=== PATIENT | female | born 1960 | race Two or more races ===

== ENCOUNTER 2017-03-22 15:22 | Inpatient (IN) | payer MEDICAID ==
[~2017-03-22] VITALS: Ht 152.4 cm; Wt 54.4 kg
[2017-03-22] MEDS ORDERED: Vancomycin 1 GM in NS 275 ML IVPB ONE (16:00)
[2017-03-22] MEDS ORDERED: Ketorolac 30mg Inj IV ONE (16:00)
--- NOTE | 2017-03-22 16:30 | Diagnostic Imaging Report ---
Indication: Reason For Exam: PAIN Technique: 3 views of the left knee Comparison: None Findings: No acute fractures. No dislocations. Joint spaces are preserved Impression: Negative
[2017-03-22] MEDS ORDERED: Vancomycin 1gm inj IVPB ONE (17:02)
[2017-03-22] MEDS ORDERED: NS 275 ML ONE (17:03)
[2017-03-22] MEDS ORDERED: ZOCOR20 M1 ORAL (17:45)
[2017-03-22] MEDS ORDERED: METFORMIN HCL500 M1 ORAL (17:45)
--- NOTE | 2017-03-22 18:25 | Emergency Room Report ---
History of Present Illness General Chief Complaint: Skin Rash/Abscess Source: Patient Present Illness HPI Patient presents emergency department today complaining of right lower extremity redness and tenderness. Patient denies any fever chest pain shortness of breath. States that this started out as a little bump in her right pinky toe and then gradually became red and more painful and then straight up her leg and into her thigh and part of her abdomen. Patient saw her primary care physician and was told that she needed to be admitted to the hospital and was sent here for further evaluation. Patient does have a history of diabetes. No other complaints are noted patient was noted to be severe.No other modifying factors. No other associated signs and symptoms. No other complaints were noted. Allergies: Coded Allergies: No Known Allergies (Unverified , 03/22/17) Patient History Past Medical History: DM, HTN Past Surgical History: none Pertinent Family History: none Social History: Denies: smoking, alcohol use, drug use Reviewed Nursing Documentation: PMH: Agreed, PSxH: Agreed Nursing Documentation-PMH Past Medical History: No History, Except For Hx Hypertension: Yes Hx Diabetes: Yes Review of Systems All Other Systems: negative except mentioned in HPI Physical Exam Vital Signs Date Time Temp Pulse Resp B/P (MAP) Pulse Ox O2 Delivery O2 Flow Rate FiO2 03/22/17 15:37 99.1 100 20 145/77 99 Room Air Sp02 EP Interpretation: reviewed, normal General Appearance: normal inspection, well appearing, no apparent distress, alert Head: atraumatic Eyes: bilateral eye normal inspection ENT: normal ENT inspection, hearing grossly normal, normal voice Neck: normal inspection, full range of motion, supple, no bony tend Respiratory: normal inspection, lungs clear, normal breath sounds, no respiratory distress, no retraction, no wheezing Cardiovascular #1: regular rate, rhythm, no edema Gastrointestinal: normal inspection, normal bowel sounds, non tender, soft, no guarding, no hernia Genitourinary: no CVA tenderness Musculoskeletal: back normal, normal range of motion, swelling - and redness right lower extremity Neurologic: normal inspection, alert, responsive, speech normal Psychiatric: normal inspection, judgement/insight normal, mood/affect normal Skin: other - right lower extremity redness consistent with cellulitis streaking up the thigh and into the abdominal wall Medical Decision Making Diagnostic Impression: Primary Impression: Cellulitis ER Course Patient presents emergency department today with right lower extremity redness and swelling. Differential considerations include abscess, cellulitis, DVT, allergic reaction. Patient exam consistent with cellulitis. Because of severity of involvement and patient's risk factors I felt the patient require admission. Patient was started on IV antibiotics. Case was discussed with admitting physician. Patient will be admitted to [facility] for further treatment. Labs Test 03/22/17 19:00 White Blood Count 7.1 K/UL (4.8-10.8) Red Blood Count 4.69 M/UL (4.20-5.40) Hemoglobin 13.1 G/DL (12.0-16.0) Hematocrit 42.2 % (37.0-47.0) Mean Corpuscular Volume 90 FL (80-99) Mean Corpuscular Hemoglobin 27.8 PG (27.0-31.0) Mean Corpuscular Hemoglobin Concent 30.9 G/DL (32.0-36.0) Red Cell Distribution Width 12.4 % (11.6-14.8) Platelet Count 257 K/UL (150-450) Mean Platelet Volume 5.5 FL (6.5-10.1) Neutrophils (%) (Auto) 67.5 % (45.0-75.0) Lymphocytes (%) (Auto) 19.7 % (20.0-45.0) Monocytes (%) (Auto) 7.4 % (1.0-10.0) Eosinophils (%) (Auto) 5.1 % (0.0-3.0) Basophils (%) (Auto) 0.3 % (0.0-2.0) Prothrombin Time 9.9 SEC (9.30-11.50) Prothromb Time International Ratio 0.9 (0.9-1.1) Activated Partial Thromboplast Time 28 SEC (23-33) Sodium Level 140 MMOL/L (136-145) Potassium Level 4.0 MMOL/L (3.5-5.1) Chloride Level 106 MMOL/L (98-107) Carbon Dioxide Level 25 MMOL/L (21-32) Anion Gap 9 mmol/L (5-15) Blood Urea Nitrogen 14 mg/dL (7-18) Creatinine 1.0 MG/DL (0.55-1.30) Estimat Glomerular Filtration Rate 57.4 mL/min (>60) Glucose Level 118 MG/DL (74-106) Calcium Level 8.4 MG/DL (8.5-10.1) Total Bilirubin 0.2 MG/DL (0.2-1.0) Aspartate Amino Transf (AST/SGOT) 45 U/L (15-37) Alanine Aminotransferase (ALT/SGPT) 61 U/L (12-78) Alkaline Phosphatase 98 U/L (46-116) Total Protein 7.8 G/DL (6.4-8.2) Albumin 3.8 G/DL (3.4-5.0) Globulin 4.0 g/dL Albumin/Globulin Ratio 0.9 (1.0-2.7) Last Vital Signs Date Time Temp Pulse Resp B/P (MAP) Pulse Ox O2 Delivery O2 Flow Rate FiO2 03/22/17 15:37 99.1 100 20 145/77 99 Room Air Status: improved Disposition: ADMITTED INPATIENT Condition: Serious Referrals: JONO TURCIOS,REFERRING (PCP) EDITH WU M.D. Mar 22, 2017 18:25
[2017-03-22 19:18] LABS: BASOPHILS % (AUTO) 0.3 % (0.0-2.0); EOSINOPHILS % (AUTO) 5.1 % (0.0-3.0); HEMATOCRIT 42.2 % (37.0-47.0); HEMOGLOBIN 13.1 G/DL (12.0-16.0); LYMPHOCYTES % (AUTO) 19.7 % (20.0-45.0); MEAN CORPUSCULAR VOLUME 90 FL (80-99); MONOCYTES % (AUTO) 7.4 % (1.0-10.0); NEUTROPHILS % (AUTO) 67.5 % (45.0-75.0); PLATELET COUNT 257 K/UL (150-450); RED BLOOD COUNT 4.69 M/UL (4.20-5.40); RED CELL DISTRIBUTION WIDTH 12.4 % (11.6-14.8); WHITE BLOOD COUNT 7.1 K/UL (4.8-10.8)
[2017-03-22 19:21] LABS: INR 0.9 (0.9-1.1)
[2017-03-22 19:23] LABS: ANION GAP 9 mmol/L (5-15); BLOOD UREA NITROGEN 14 mg/dL (7-18); CALCIUM 8.4 MG/DL (8.5-10.1); CARBON DIOXIDE 25 MMOL/L (21-32); CHLORIDE 106 MMOL/L (98-107); SODIUM 140 MMOL/L (136-145)
[2017-03-22 19:27] LABS: ALANINE AMINOTRANSFERASE 61 U/L (12-78); ALBUMIN 3.8 G/DL (3.4-5.0); ALBUMIN/GLOBULIN RATIO 0.9 (1.0-2.7); ALKALINE PHOSPHATASE 98 U/L (46-116); ASPARTATE AMINO TRANSFERASE 45 U/L (15-37); BILIRUBIN,TOTAL 0.2 MG/DL (0.2-1.0)
[2017-03-22 19:33] VITALS: BP 100/56
[2017-03-22] MEDS ORDERED: Morphine Sulfate 2mg/ml Inj IVP PRN (20:45)
[2017-03-22] MEDS ORDERED: Zolpidem 5mg tab ORAL PRN (20:45)
[2017-03-22] MEDS ORDERED: ceFAZolin 1gm/50ml Premix 50 ML IV ONE (21:00)
[2017-03-22] MEDS: Heparin 5000 units/ml inj SUBQ SCH (21:56)
[2017-03-22] MEDS: HYDROcodone/Acetamin 10/325 tab ORAL PRN (22:35)
[2017-03-23] VITALS: BP 100/58
[2017-03-23 04:30] VITALS: BP 117/60
[2017-03-23] MEDS: NovoLOG Insulin Flexpen SUBQ SCH ×4 (05:59→20:40)
[2017-03-23 08:00] VITALS: BP 109/63
[2017-03-23 08:13] LABS: BASOPHILS % (AUTO) 0.7 % (0.0-2.0); EOSINOPHILS % (AUTO) 4.5 % (0.0-3.0); HEMATOCRIT 37.5 % (37.0-47.0); HEMOGLOBIN 12.5 G/DL (12.0-16.0); LYMPHOCYTES % (AUTO) 20.7 % (20.0-45.0); MEAN CORPUSCULAR VOLUME 88 FL (80-99); MONOCYTES % (AUTO) 6.2 % (1.0-10.0); NEUTROPHILS % (AUTO) 67.9 % (45.0-75.0); PLATELET COUNT 228 K/UL (150-450); RED BLOOD COUNT 4.27 M/UL (4.20-5.40); RED CELL DISTRIBUTION WIDTH 12.5 % (11.6-14.8); WHITE BLOOD COUNT 5.9 K/UL (4.8-10.8)
[2017-03-23 08:15] LABS: ANION GAP 10 mmol/L (5-15); BLOOD UREA NITROGEN 15 mg/dL (7-18); CALCIUM 7.9 MG/DL (8.5-10.1); CARBON DIOXIDE 23 MMOL/L (21-32); CHLORIDE 106 MMOL/L (98-107); CREATININE 0.8 MG/DL (0.55-1.30); POTASSIUM 3.3 MMOL/L (3.5-5.1); SODIUM 139 MMOL/L (136-145)
[2017-03-23] MEDS: Heparin 5000 units/ml inj SUBQ SCH ×2 (09:04→21:01)
[2017-03-23] MEDS: metFORMIN 500mg tab ORAL SCH (09:04)
--- NOTE | 2017-03-23 11:37 | Infectious Diseases Prog Note ---
Assessment/Plan Problems: (1) Cellulitis of right thigh Assessment & Plan: will start vancomycin and cefazolin empiric coverage, order blood culture to rule out sepsis (2) Cellulitis and abscess of lower extremity Assessment & Plan: management the same as above (3) Sepsis Assessment & Plan: due to the above , will start vancomycin and cefazolin empiric coverage, pending culture (4) Fever Assessment & Plan: due to the above , continue tylenol prn Subjective Allergies: Coded Allergies: No Known Allergies (Unverified , 03/22/17) Objective Vital Signs Last 24 Hour Vital Signs Date Time Temp Pulse Resp B/P (MAP) Pulse Ox O2 Delivery O2 Flow Rate FiO2 03/23/17 08:00 98.6 94 20 109/63 94 03/23/17 05:29 99.9 03/23/17 04:30 101.9 97 19 117/60 96 Room Air 03/23/17 00:00 99.0 88 19 100/58 93 Room Air 03/22/17 19:57 98.8 100 16 100/56 100 Room Air 03/22/17 19:33 98.8 100 16 100/56 100 Room Air 03/22/17 15:37 99.1 100 20 145/77 99 Room Air Height (Feet): 5 Height (Inches): 0.00 Weight (Pounds): 120 Laboratory Tests Test 03/22/17 19:00 03/23/17 07:00 White Blood Count 7.1 K/UL (4.8-10.8) 5.9 K/UL (4.8-10.8) Red Blood Count 4.69 M/UL (4.20-5.40) 4.27 M/UL (4.20-5.40) Hemoglobin 13.1 G/DL (12.0-16.0) 12.5 G/DL (12.0-16.0) Hematocrit 42.2 % (37.0-47.0) 37.5 % (37.0-47.0) Mean Corpuscular Volume 90 FL (80-99) 88 FL (80-99) Mean Corpuscular Hemoglobin 27.8 PG (27.0-31.0) 29.2 PG (27.0-31.0) Mean Corpuscular Hemoglobin Concent 30.9 G/DL (32.0-36.0) L 33.3 G/DL (32.0-36.0) Red Cell Distribution Width 12.4 % (11.6-14.8) 12.5 % (11.6-14.8) Platelet Count 257 K/UL (150-450) 228 K/UL (150-450) Mean Platelet Volume 5.5 FL (6.5-10.1) L 6.3 FL (6.5-10.1) L Neutrophils (%) (Auto) 67.5 % (45.0-75.0) 67.9 % (45.0-75.0) Lymphocytes (%) (Auto) 19.7 % (20.0-45.0) L 20.7 % (20.0-45.0) Monocytes (%) (Auto) 7.4 % (1.0-10.0) 6.2 % (1.0-10.0) Eosinophils (%) (Auto) 5.1 % (0.0-3.0) H 4.5 % (0.0-3.0) H Basophils (%) (Auto) 0.3 % (0.0-2.0) 0.7 % (0.0-2.0) Prothrombin Time 9.9 SEC (9.30-11.50) Prothromb Time International Ratio 0.9 (0.9-1.1) Activated Partial Thromboplast Time 28 SEC (23-33) Sodium Level 140 MMOL/L (136-145) 139 MMOL/L (136-145) Potassium Level 4.0 MMOL/L (3.5-5.1) 3.3 MMOL/L (3.5-5.1) L Chloride Level 106 MMOL/L (98-107) 106 MMOL/L (98-107) Carbon Dioxide Level 25 MMOL/L (21-32) 23 MMOL/L (21-32) Anion Gap 9 mmol/L (5-15) 10 mmol/L (5-15) Blood Urea Nitrogen 14 mg/dL (7-18) 15 mg/dL (7-18) Creatinine 1.0 MG/DL (0.55-1.30) 0.8 MG/DL (0.55-1.30) Estimat Glomerular Filtration Rate 57.4 mL/min (>60) > 60 mL/min (>60) Glucose Level 118 MG/DL (74-106) H 112 MG/DL (74-106) H Calcium Level 8.4 MG/DL (8.5-10.1) L 7.9 MG/DL (8.5-10.1) L Total Bilirubin 0.2 MG/DL (0.2-1.0) Aspartate Amino Transf (AST/SGOT) 45 U/L (15-37) H Alanine Aminotransferase (ALT/SGPT) 61 U/L (12-78) Alkaline Phosphatase 98 U/L (46-116) Total Protein 7.8 G/DL (6.4-8.2) Albumin 3.8 G/DL (3.4-5.0) Globulin 4.0 g/dL Albumin/Globulin Ratio 0.9 (1.0-2.7) L Current Medications Medications (Trade) Dose Ordered Sig/Rebekah Route PRN Reason Start Time Stop Time Status Last Admin Dose Admin Acetaminophen (Tylenol) 650 mg Q4H PRN ORAL Mild Pain (Pain Scale 1-3) 03/22/17 20:45 04/21/17 20:44 03/23/17 04:30 Acetaminophen/ Hydrocodone Bitart ([place] 10/325) 1 ea Q4H PRN ORAL For Moderate Pain 03/22/17 20:45 03/29/17 20:44 03/22/17 22:35 Atorvastatin Calcium (Lipitor) 10 mg BEDTIME ORAL 03/22/17 22:30 04/21/17 22:29 03/22/17 21:55 Dextrose (Dextrose 50%) STAT PRN IV Hypoglycemia 03/22/17 20:45 04/21/17 20:44 Diphenhydramine HCl (Benadryl) 25 mg Q6H PRN ORAL Itching/Pruritis 03/22/17 20:45 04/21/17 20:44 03/22/17 22:35 Heparin Sodium (Porcine) (Heparin 5000 units/ml) 5,000 units EVERY 12 HOURS SUBQ 03/22/17 22:30 04/21/17 22:29 03/23/17 09:04 Insulin Aspart (NovoLOG) BEFORE MEALS AND HS SUBQ 03/23/17 06:30 04/22/17 06:29 Metformin HCl (Glucophage) 500 mg DAILY ORAL 03/23/17 09:00 2/5/18 08:59 03/23/17 09:04 Morphine Sulfate (Morphine Sulfate) 2 mg Q4H PRN IVP Severe Pain (Pain Scale 7-10) 03/22/17 20:45 03/29/17 20:44 Ondansetron HCl (Zofran) 4 mg Q6H PRN IVP Nausea & Vomiting 03/22/17 20:45 04/21/17 20:44 Vancomycin HCl (Vanco rx to dose) 1 ea DAILY PRN MISC Per rx protocol 03/22/17 19:45 04/21/17 19:44 Vancomycin HCl 1 gm/Dextrose 275 ml @ 183.708 mls/hr Q24H IVPB 03/23/17 17:00 03/28/17 16:59 Zolpidem Tartrate (Ambien) 5 mg HSPRN PRN ORAL Insomnia 03/22/17 20:45 03/29/17 20:44 Suzan Gomez M.D. Mar 23, 2017 11:37
[2017-03-23 12:00] VITALS: BP 117/71
--- NOTE | 2017-03-23 12:30 | History and Physical ---
History of Present Illness General Date patient seen: Mar 23, 2017 Reason for Hospitalization: Skin Rash/Abscess Present Illness HPI 57 y/o female with a PMH for DM and hyperlipidemia who presented to the ED c/o rash on the right leg. She was seen by her PCP yesterday who sent her immediately to the ED for further evaluation. She states that the rash started on the dorsum of right foot then over the last week extended up to the medial thigh. She reports fever but denies any other localizing complaints. Since admission, patient states that the rash is improving and edema is improved. Daughters at bedside agree. However, patient is still spiking temp. Allergies: Coded Allergies: No Known Allergies (Unverified , 03/22/17) Medication History Scheduled Metformin Hcl* (Metformin Hcl*), 500 MG ORAL DAILY, (Reported) Simvastatin (Zocor), 20 MG ORAL BEDTIME, (Reported) Patient History History Provided By: Patient, Family Member Healthcare decision maker n/a Resuscitation status Full Code Advanced Directive on File Past Medical/Surgical History Past Medical/Surgical History: (1) Hyperlipidemia (2) DM (diabetes mellitus) Review of Systems All Other Systems: negative except mentioned in HPI Physical Exam General Appearance: WD/WN, no apparent distress HEENT: normocephalic, atraumatic Respiratory/Chest: lungs clear Cardiovascular/Chest: tachycardia Abdomen: non tender, soft Extremities: trace edema Skin Exam: rash Neurologic: alert, oriented x 3 Physical Exam Narrative RLE - with erythematous lesions, tender, and warm to touch. Last 24 Hour Vital Signs Date Time Temp Pulse Resp B/P (MAP) Pulse Ox O2 Delivery O2 Flow Rate FiO2 03/23/17 12:00 99.9 106 20 117/71 96 03/23/17 08:00 98.6 94 20 109/63 94 03/23/17 05:29 99.9 03/23/17 04:30 101.9 97 19 117/60 96 Room Air 03/23/17 00:00 99.0 88 19 100/58 93 Room Air 03/22/17 19:57 98.8 100 16 100/56 100 Room Air 03/22/17 19:33 98.8 100 16 100/56 100 Room Air 03/22/17 15:37 99.1 100 20 145/77 99 Room Air Intake and Output 03/22/17 03/23/17 19:00 07:00 Intake Total 50 ml Balance 50 ml Intake Oral 0 ml IV Total 50 ml # Voids 2 Laboratory Tests Test 03/22/17 19:00 03/23/17 07:00 White Blood Count 7.1 K/UL (4.8-10.8) 5.9 K/UL (4.8-10.8) Red Blood Count 4.69 M/UL (4.20-5.40) 4.27 M/UL (4.20-5.40) Hemoglobin 13.1 G/DL (12.0-16.0) 12.5 G/DL (12.0-16.0) Hematocrit 42.2 % (37.0-47.0) 37.5 % (37.0-47.0) Mean Corpuscular Volume 90 FL (80-99) 88 FL (80-99) Mean Corpuscular Hemoglobin 27.8 PG (27.0-31.0) 29.2 PG (27.0-31.0) Mean Corpuscular Hemoglobin Concent 30.9 G/DL (32.0-36.0) L 33.3 G/DL (32.0-36.0) Red Cell Distribution Width 12.4 % (11.6-14.8) 12.5 % (11.6-14.8) Platelet Count 257 K/UL (150-450) 228 K/UL (150-450) Mean Platelet Volume 5.5 FL (6.5-10.1) L 6.3 FL (6.5-10.1) L Neutrophils (%) (Auto) 67.5 % (45.0-75.0) 67.9 % (45.0-75.0) Lymphocytes (%) (Auto) 19.7 % (20.0-45.0) L 20.7 % (20.0-45.0) Monocytes (%) (Auto) 7.4 % (1.0-10.0) 6.2 % (1.0-10.0) Eosinophils (%) (Auto) 5.1 % (0.0-3.0) H 4.5 % (0.0-3.0) H Basophils (%) (Auto) 0.3 % (0.0-2.0) 0.7 % (0.0-2.0) Prothrombin Time 9.9 SEC (9.30-11.50) Prothromb Time International Ratio 0.9 (0.9-1.1) Activated Partial Thromboplast Time 28 SEC (23-33) Sodium Level 140 MMOL/L (136-145) 139 MMOL/L (136-145) Potassium Level 4.0 MMOL/L (3.5-5.1) 3.3 MMOL/L (3.5-5.1) L Chloride Level 106 MMOL/L (98-107) 106 MMOL/L (98-107) Carbon Dioxide Level 25 MMOL/L (21-32) 23 MMOL/L (21-32) Anion Gap 9 mmol/L (5-15) 10 mmol/L (5-15) Blood Urea Nitrogen 14 mg/dL (7-18) 15 mg/dL (7-18) Creatinine 1.0 MG/DL (0.55-1.30) 0.8 MG/DL (0.55-1.30) Estimat Glomerular Filtration Rate 57.4 mL/min (>60) > 60 mL/min (>60) Glucose Level 118 MG/DL (74-106) H 112 MG/DL (74-106) H Calcium Level 8.4 MG/DL (8.5-10.1) L 7.9 MG/DL (8.5-10.1) L Total Bilirubin 0.2 MG/DL (0.2-1.0) Aspartate Amino Transf (AST/SGOT) 45 U/L (15-37) H Alanine Aminotransferase (ALT/SGPT) 61 U/L (12-78) Alkaline Phosphatase 98 U/L (46-116) Total Protein 7.8 G/DL (6.4-8.2) Albumin 3.8 G/DL (3.4-5.0) Globulin 4.0 g/dL Albumin/Globulin Ratio 0.9 (1.0-2.7) L Height (Feet): 5 Height (Inches): 0.00 Weight (Pounds): 120 Medications Current Medications Medications (Trade) Dose Ordered Sig/Rebekah Route PRN Reason Start Time Stop Time Status Last Admin Dose Admin Acetaminophen (Tylenol) 650 mg Q4H PRN ORAL Mild Pain (Pain Scale 1-3) 03/22/17 20:45 04/21/17 20:44 03/23/17 11:32 Acetaminophen/ Hydrocodone Bitart ([place] 10/325) 1 ea Q4H PRN ORAL For Moderate Pain 03/22/17 20:45 03/29/17 20:44 03/22/17 22:35 Atorvastatin Calcium (Lipitor) 10 mg BEDTIME ORAL 03/22/17 22:30 04/21/17 22:29 03/22/17 21:55 Dextrose (Dextrose 50%) STAT PRN IV Hypoglycemia 03/22/17 20:45 04/21/17 20:44 Diphenhydramine HCl (Benadryl) 25 mg Q6H PRN ORAL Itching/Pruritis 03/22/17 20:45 04/21/17 20:44 03/22/17 22:35 Heparin Sodium (Porcine) (Heparin 5000 units/ml) 5,000 units EVERY 12 HOURS SUBQ 03/22/17 22:30 04/21/17 22:29 03/23/17 09:04 Insulin Aspart (NovoLOG) BEFORE MEALS AND HS SUBQ 03/23/17 06:30 04/22/17 06:29 03/23/17 11:35 Metformin HCl (Glucophage) 500 mg DAILY ORAL 03/23/17 09:00 04/22/17 08:59 03/23/17 09:04 Morphine Sulfate (Morphine Sulfate) 2 mg Q4H PRN IVP Severe Pain (Pain Scale 7-10) 03/22/17 20:45 03/29/17 20:44 Ondansetron HCl (Zofran) 4 mg Q6H PRN IVP Nausea & Vomiting 03/22/17 20:45 04/21/17 20:44 Vancomycin HCl (Vanco rx to dose) 1 ea DAILY PRN MISC Per rx protocol 03/22/17 19:45 04/21/17 19:44 Vancomycin HCl 1 gm/Dextrose 275 ml @ 183.708 mls/hr Q24H IVPB 03/23/17 17:00 03/28/17 16:59 Zolpidem Tartrate (Ambien) 5 mg HSPRN PRN ORAL Insomnia 03/22/17 20:45 03/29/17 20:44 Assessment/Plan Problem List: (1) Cellulitis ICD Codes: L03.90 - Cellulitis, unspecified SNOMED: 622254171 (2) Fever ICD Codes: R50.9 - Fever, unspecified SNOMED: 721205742 (3) Cellulitis of right thigh ICD Codes: L03.115 - Cellulitis of right lower limb SNOMED: 12972024 (4) Sepsis ICD Codes: A41.9 - Sepsis, unspecified organism SNOMED: 14753094 (5) Hyperlipidemia ICD Codes: E78.5 - Hyperlipidemia, unspecified SNOMED: 67963725 (6) DM (diabetes mellitus) ICD Codes: E11.9 - Type 2 diabetes mellitus without complications SNOMED: 84017785 Assessment/Plan Resume home meds. ID consulted. Empiric abx. DVt ppx. d/w dtrs at bedside. D.w Dr. Coley who agrees with plan. ESTER AGUILAR Mar 23, 2017 12:30
--- NOTE | 2017-03-23 16:39 | Cardiac Electrophysiology PN ---
Subjective Subjective [id number] Objective Last 24 Hour Vital Signs Date Time Temp Pulse Resp B/P (MAP) Pulse Ox O2 Delivery O2 Flow Rate FiO2 03/23/17 13:27 92 Simple Mask 6.0 03/23/17 13:27 Simple Mask 6.0 03/23/17 12:31 99.9 03/23/17 12:00 99.9 106 20 117/71 96 03/23/17 08:00 98.6 94 20 109/63 94 03/23/17 04:30 101.9 97 19 117/60 96 Room Air 03/23/17 00:00 99.0 88 19 100/58 93 Room Air 03/22/17 19:57 98.8 100 16 100/56 100 Room Air 03/22/17 19:33 98.8 100 16 100/56 100 Room Air Intake and Output 03/22/17 03/23/17 19:00 07:00 Intake Total 50 ml Balance 50 ml Intake Oral 0 ml IV Total 50 ml # Voids 2 Laboratory Tests Test 03/22/17 19:00 03/23/17 07:00 White Blood Count 7.1 K/UL (4.8-10.8) 5.9 K/UL (4.8-10.8) Red Blood Count 4.69 M/UL (4.20-5.40) 4.27 M/UL (4.20-5.40) Hemoglobin 13.1 G/DL (12.0-16.0) 12.5 G/DL (12.0-16.0) Hematocrit 42.2 % (37.0-47.0) 37.5 % (37.0-47.0) Mean Corpuscular Volume 90 FL (80-99) 88 FL (80-99) Mean Corpuscular Hemoglobin 27.8 PG (27.0-31.0) 29.2 PG (27.0-31.0) Mean Corpuscular Hemoglobin Concent 30.9 G/DL (32.0-36.0) L 33.3 G/DL (32.0-36.0) Red Cell Distribution Width 12.4 % (11.6-14.8) 12.5 % (11.6-14.8) Platelet Count 257 K/UL (150-450) 228 K/UL (150-450) Mean Platelet Volume 5.5 FL (6.5-10.1) L 6.3 FL (6.5-10.1) L Neutrophils (%) (Auto) 67.5 % (45.0-75.0) 67.9 % (45.0-75.0) Lymphocytes (%) (Auto) 19.7 % (20.0-45.0) L 20.7 % (20.0-45.0) Monocytes (%) (Auto) 7.4 % (1.0-10.0) 6.2 % (1.0-10.0) Eosinophils (%) (Auto) 5.1 % (0.0-3.0) H 4.5 % (0.0-3.0) H Basophils (%) (Auto) 0.3 % (0.0-2.0) 0.7 % (0.0-2.0) Prothrombin Time 9.9 SEC (9.30-11.50) Prothromb Time International Ratio 0.9 (0.9-1.1) Activated Partial Thromboplast Time 28 SEC (23-33) Sodium Level 140 MMOL/L (136-145) 139 MMOL/L (136-145) Potassium Level 4.0 MMOL/L (3.5-5.1) 3.3 MMOL/L (3.5-5.1) L Chloride Level 106 MMOL/L (98-107) 106 MMOL/L (98-107) Carbon Dioxide Level 25 MMOL/L (21-32) 23 MMOL/L (21-32) Anion Gap 9 mmol/L (5-15) 10 mmol/L (5-15) Blood Urea Nitrogen 14 mg/dL (7-18) 15 mg/dL (7-18) Creatinine 1.0 MG/DL (0.55-1.30) 0.8 MG/DL (0.55-1.30) Estimat Glomerular Filtration Rate 57.4 mL/min (>60) > 60 mL/min (>60) Glucose Level 118 MG/DL (74-106) H 112 MG/DL (74-106) H Calcium Level 8.4 MG/DL (8.5-10.1) L 7.9 MG/DL (8.5-10.1) L Total Bilirubin 0.2 MG/DL (0.2-1.0) Aspartate Amino Transf (AST/SGOT) 45 U/L (15-37) H Alanine Aminotransferase (ALT/SGPT) 61 U/L (12-78) Alkaline Phosphatase 98 U/L (46-116) Total Protein 7.8 G/DL (6.4-8.2) Albumin 3.8 G/DL (3.4-5.0) Globulin 4.0 g/dL Albumin/Globulin Ratio 0.9 (1.0-2.7) LUCIA PETERSEN Mar 23, 2017 16:39
[2017-03-23] MEDS ORDERED: Vancomycin 1gm/D5W 275ml IVPB SCH ×2 (17:00)
[2017-03-23 20:00] VITALS: BP 124/73
[2017-03-23] MEDS: HYDROcodone/Acetamin 10/325 tab ORAL PRN (21:00)
--- NOTE | 2017-03-23 21:45 | Consultation ---
DATE OF CONSULTATION: 03/23/2016 INFECTIOUS DISEASE CONSULTATION CONSULTING PHYSICIAN: Suzan Gomez M.D. REQUESTING PHYSICIAN: Varun Coley M.D. REASON FOR CONSULTATION: Right leg diffuse cellulitis with skin abscesses, recommendation for antibiotics treatment and further management. HISTORY OF PRESENT ILLNESS: The patient is a 57-year-old female with past medical history of diabetes and hypertension, presented to the emergency room at [facility] complaining of right lower extremity redness and tenderness. It started on her small toe as a skin break, which she kept scratching, on the dorsum of her foot that became red and swollen, and she developed significant redness on her right medial aspect of her leg and spread up to the right inner thigh. The patient's skin was red, swollen and tender. She developed fever and chills. She saw her primary care physician and she was told to go to the emergency room for admission and further evaluation. So, she presented to [facility] for further management. The patient was found to be febrile with temperature of 99.1, saturating 99% on room air with significant redness of the right lower extremity. So, she was started on IV antibiotics and I was consulted by the primary provider for antibiotics treatment and further management. PAST MEDICAL HISTORY: Significant for diabetes and hypertension. PAST SURGICAL HISTORY: Negative. MEDICATIONS: The patient was given one dose of vancomycin in the emergency room. For the rest of her medications, please refer to [facility]. ALLERGIES: She has no known drug allergy. SOCIAL HISTORY: The patient is a housewife. Denied using any drugs, tobacco, or alcohol. FAMILY HISTORY: Not contributory. REVIEW OF SYSTEMS: Fourteen points of systems reviewed, were all negative apart from the one I mentioned above in my H and P. PHYSICAL EXAMINATION: GENERAL: A middle-aged female, obese, lying in bed, awake, alert, not in distress. VITAL SIGNS: Temperature 99.9, pulse 106, respirations 20, blood pressure 117/71, saturation 96% on room air. HEENT: Normocephalic, atraumatic. Pupils are reactive to light. Moist oral mucosa. No exudate. NECK: Supple. No lymphadenopathy. CARDIOVASCULAR: Regular rate and rhythm. No murmur or gallop. LUNGS: Clear bilaterally. No wheezing or rhonchi. ABDOMEN: Soft, nontender, nondistended. Normal bowel sounds. EXTREMITIES: She had right inner thigh redness and swelling with erythema and warmth. She also has right medial leg skin cellulitis with redness, erythema, and swelling with local tenderness. Mild bruises on the left foot and swelling too. LABORATORY AND DIAGNOSTIC DATA: Labs showed white count of 5.9, hemoglobin of 12.5, platelet count of 228. BUN of 15, creatinine of 0.8. AST of 45, ALT of 61. Imaging, right knee x-ray was negative for any fracture or dislocation. ASSESSMENT AND RECOMMENDATION: 1. Cellulitis of the right thigh. We will start vancomycin and cefazolin empiric coverage and order blood culture to rule out sepsis. 2. Cellulitis and abscess of the lower extremity. Management the same as per above. 3. Sepsis due to the above. We will start vancomycin and cefazolin empiric coverage pending culture results. 4. Fever due to the above. Continue Tylenol p.r.n. Monitor symptoms. 5. Diabetes. Recommend tight glycemic control to keep blood glucose between 100 to 140. Thank you for the consult. ID will continue to follow. Suzan Gomez M.D. DR: Sergio JOB#: [id number] CC:
[2017-03-23] MEDS ORDERED: 1/2 NS 1000ml IV ONE (22:34)
[2017-03-23] MEDS ORDERED: NS 500ML ONE (22:34)
[2017-03-23] MEDS ORDERED: Tubing IV Secondary IV ONE (22:34)
--- NOTE | 2017-03-23 22:43 | Wound Care Consultation ---
Wound Assessment Wound Assessment : Wound Number: 1 Wound Present on Admission: Yes New Wound: No Status Change of Wound: No Wound Location Body Site Modif: right, upper, lower Wound Location Body Site: leg Wound Type: other - Cellulitis Aniceto Test: Does not Aniceto Wound Thickness: Full Thickness Percent of Wound [place]/Red: 100 Wound Drainage Amount: None Wound Drainage Odor: None/Absent Tissue Surrounding Wound: Erythemic Wound General Appearance: Reddened Wound Comment #1 Cellulitis right lower and upper leg Recommendation -Keep clean and dry -Offload both heels -Optimize nutrition -Assess and f/u accordingly for any changes RACHEL WEST RN Mar 23, 2017 22:43
--- NOTE | 2017-03-23 23:45 | Consultation ---
DATE OF CONSULTATION: 03/23/2017 CARDIOLOGY CONSULTATION CONSULTING PHYSICIAN: Chris Kelley M.D. REFERRING PHYSICIAN: Varun Coley M.D. REASON FOR CONSULTATION: Management of hypertension. HISTORY OF PRESENT ILLNESS: The patient is a 57-year-old lady with history of hypertension, diabetes, and hyperlipidemia, who presents to the emergency room with a rash on the right leg. The patient was sent by her primary care doctor. The rash started on dorsum of the right foot extending up to mid thigh. The patient denies any prior myocardial infarction or coronary artery disease or congestive heart failure, but even though she has had high blood pressure. PAST MEDICAL HISTORY: As mentioned above. FAMILY HISTORY: Noncontributory. MEDICATIONS: Per reconciliation. SOCIAL HISTORY: Lives at home. Does not smoke or drink alcohol. REVIEW OF SYSTEMS: Review of systems was performed and was negative other than what was mentioned in the history of present illness. PHYSICAL EXAMINATION: VITAL SIGNS: Blood pressure is 117/71, pulse is 70, respirations 18, temperature was 101.9. HEAD AND NECK: Shows no JVD. LUNGS: Clear. CARDIOVASCULAR: Regular S1 and S2 with no gallop or murmur. ABDOMEN: Soft. EXTREMITIES: Erythema noted in the middle aspect of the thigh. LABORATORY DATA: White count 5.9, hemoglobin 12.5, hematocrit 37.5, and platelets 228,000. Sodium is 139, potassium 3.3, BUN of 15, creatinine 0.8, and glucose of 112. INR is 0.9. ASSESSMENT AND PLAN: 1. Hypertension. I will start the patient on lisinopril. patient's diabetes. We will follow the patient clinically, and get an echocardiogram and EKG. 2. Diabetes, on metformin. 3. Hyperlipidemia, on Lipitor. 4. Right leg cellulitis, on vancomycin. Thank you very much, Dr. Coley, for allowing me to participate in the care of this patient. Please do not hesitate to contact me for any questions regarding my evaluation. The case was discussed. Chris Kelley M.D. DR: Galindo JOB#: [id number] CC:
[2017-03-24] VITALS: BP 124/73
[2017-03-24 04:00] VITALS: BP 126/81
[2017-03-24] MEDS: NovoLOG Insulin Flexpen SUBQ SCH ×2 (05:51→11:17)
--- NOTE | 2017-03-24 09:27 | Nephrology Progress Note ---
Assessment/Plan Problem List: (1) Cellulitis (2) Fever (3) Cellulitis of right thigh (4) Sepsis (5) Hyperlipidemia (6) DM (diabetes mellitus) Plan benadryl prn itching. d/c home if ok with ID. Subjective Subjective now has itching of right inner thigh. less pain. Objective Objective Last 24 Hour Vital Signs Date Time Temp Pulse Resp B/P (MAP) Pulse Ox O2 Delivery O2 Flow Rate FiO2 03/24/17 06:23 98.2 03/24/17 04:00 100.3 80 21 126/81 98 03/24/17 04:00 Room Air 03/24/17 00:00 99.1 96 20 124/73 96 03/24/17 00:00 Room Air 03/23/17 23:00 99.3 03/23/17 22:49 Simple Mask 6.0 03/23/17 22:48 93 Simple Mask 6.0 03/23/17 21:59 98.6 03/23/17 20:00 102.3 103 20 124/73 95 03/23/17 20:00 Room Air 03/23/17 17:36 98.6 03/23/17 13:27 92 Simple Mask 6.0 03/23/17 13:27 Simple Mask 6.0 03/23/17 12:31 99.9 03/23/17 12:00 99.9 106 20 117/71 96 Intake and Output 03/23/17 03/24/17 19:00 07:00 Intake Total 840 ml 360 ml Balance 840 ml 360 ml Intake Oral 840 ml 360 ml # Voids 4 2 # Bowel Movements 1 Laboratory Tests 03/24/17 06:25: Thyroid Stimulating Hormone (TSH) 1.997, Free Thyroxine 1.02 Height (Feet): 5 Height (Inches): 0.00 Weight (Pounds): 120 General Appearance: no apparent distress Cardiovascular: normal rate, regular rhythm Respiratory/Chest: lungs clear Abdomen: non tender, soft Extremities: non-pitting Neurologic: alert, oriented x 3 ESTER AGUILAR Mar 24, 2017 09:27
[2017-03-24] MEDS: metFORMIN 500mg tab ORAL SCH (10:17)
[2017-03-24] MEDS: Heparin 5000 units/ml inj SUBQ SCH (10:17)
[2017-03-24] MEDS ORDERED: DiphenhydrAMINE & Zinc 28g Cream TOPIC PRN (11:00)
[2017-03-24 12:00] VITALS: BP 106/60
--- NOTE | 2017-03-24 13:36 | Infectious Diseases Prog Note ---
Assessment/Plan Problems: (1) Cellulitis of right thigh Assessment & Plan: improving on vancomycin and cefazolin empiric coverage, blood culture remains negative, may switch to oral doxycycline and keflex for 10 days (2) Cellulitis and abscess of lower extremity Assessment & Plan: management the same as above (3) Sepsis Assessment & Plan: less likely with negative blood culture , continue vancomycin and cefazolin empiric coverage, pending culture (4) Fever Assessment & Plan: due to the above , continue tylenol prn Subjective Constitutional: Reports: no symptoms HEENT: Reports: no symptoms Respiratory: Reports: no symptoms Breasts: Reports: no symptoms Cardiovascular: Reports: no symptoms Gastrointestinal/Abdominal: Reports: no symptoms Genitourinary: Reports: no symptoms Neurologic: Reports: no symptoms Psychiatric: Reports: no symptoms Skin: Reports: other - mild erythema on the right thigh Endocrine: Reports: no symptoms Hematologic: Reports: no symptoms Musculoskeletal: Reports: no symptoms Allergies: Coded Allergies: No Known Allergies (Unverified , 03/22/17) Objective Vital Signs Last 24 Hour Vital Signs Date Time Temp Pulse Resp B/P (MAP) Pulse Ox O2 Delivery O2 Flow Rate FiO2 03/24/17 12:00 98.5 81 20 106/60 95 03/24/17 06:23 98.2 03/24/17 04:00 100.3 80 21 126/81 98 03/24/17 04:00 Room Air 03/24/17 00:00 99.1 96 20 124/73 96 03/24/17 00:00 Room Air 03/23/17 23:00 99.3 03/23/17 22:49 Simple Mask 6.0 03/23/17 22:48 93 Simple Mask 6.0 03/23/17 21:59 98.6 03/23/17 20:00 102.3 103 20 124/73 95 03/23/17 20:00 Room Air 03/23/17 17:36 98.6 Height (Feet): 5 Height (Inches): 0.00 Weight (Pounds): 120 General Appearance: WD/WN, no acute distress HEENT: normocephalic, atraumatic, anicteric, mucous membranes moist, PERRL Respiratory/Chest: chest wall non-tender, lungs clear, normal breath sounds, no respiratory distress, no accessory muscle use Cardiovascular: normal peripheral pulses, normal rate, regular rhythm, no gallop/murmur, no JVD Abdomen: normal bowel sounds, soft, non tender, no organomegaly, non distended , no mass, no scars Extremities: no cyanosis, no clubbing Skin: no rash, no lesions, no ulcers Microbiology Date/Time Source Procedure Growth Status 03/22/17 16:25 Blood Blood Culture - Preliminary NO GROWTH AFTER 24 HOURS Resulted 03/22/17 16:20 Blood Blood Culture - Preliminary NO GROWTH AFTER 24 HOURS Resulted Laboratory Tests Test 03/24/17 06:25 Thyroid Stimulating Hormone (TSH) 1.997 uiU/mL (0.358-3.740) Free Thyroxine 1.02 NG/DL (0.76-1.46) Current Medications Medications (Trade) Dose Ordered Sig/Rebekah Route PRN Reason Start Time Stop Time Status Last Admin Dose Admin Acetaminophen (Tylenol) 650 mg Q4H PRN ORAL Mild Pain (Pain Scale 1-3) 03/22/17 20:45 04/21/17 20:44 03/23/17 11:32 Acetaminophen/ Hydrocodone Bitart ([place] 10/325) 1 ea Q4H PRN ORAL For Moderate Pain 03/22/17 20:45 03/29/17 20:44 03/23/17 21:00 Atorvastatin Calcium (Lipitor) 10 mg BEDTIME ORAL 03/22/17 22:30 04/21/17 22:29 03/23/17 21:00 Dextrose (Dextrose 50%) STAT PRN IV Hypoglycemia 03/22/17 20:45 04/21/17 20:44 Diphenhydramine HCl (Benadryl Cream) 1 applic TIDPRN PRN TOPIC Itching 03/24/17 11:00 04/23/17 10:59 Diphenhydramine HCl (Benadryl) 25 mg Q6H PRN ORAL Itching/Pruritis 03/22/17 20:45 04/21/17 20:44 03/22/17 22:35 Heparin Sodium (Porcine) (Heparin 5000 units/ml) 5,000 units EVERY 12 HOURS SUBQ 03/22/17 22:30 04/21/17 22:29 03/24/17 10:17 Insulin Aspart (NovoLOG) BEFORE MEALS AND HS SUBQ 03/23/17 06:30 04/22/17 06:29 03/24/17 11:17 Metformin HCl (Glucophage) 500 mg DAILY ORAL 03/23/17 09:00 04/22/17 08:59 03/24/17 10:17 Morphine Sulfate (Morphine Sulfate) 2 mg Q4H PRN IVP Severe Pain (Pain Scale 7-10) 03/22/17 20:45 03/29/17 20:44 Ondansetron HCl (Zofran) 4 mg Q6H PRN IVP Nausea & Vomiting 03/22/17 20:45 04/21/17 20:44 Vancomycin HCl (Vanco rx to dose) 1 ea DAILY PRN MISC Per rx protocol 03/22/17 19:45 04/21/17 19:44 Vancomycin HCl 1 gm/Dextrose 275 ml @ 183.708 mls/hr Q24H IVPB 03/23/17 17:00 03/28/17 16:59 03/23/17 16:31 Zolpidem Tartrate (Ambien) 5 mg HSPRN PRN ORAL Insomnia 03/22/17 20:45 03/29/17 20:44 Suzan Gomez M.D. Mar 24, 2017 13:35
--- NOTE | 2017-03-24 14:02 | Cardiac Electrophysiology PN ---
Assessment/Plan Assessment/Plan 1. Hypertension. Continue lisinopril 2. Diabetes, on metformin. 3. Hyperlipidemia, on Lipitor. 4. Right leg cellulitis, on vancomycin. DW RN and family Subjective Subjective Comfortable in NAD. Family at bedside. Getting ready to be DCed. Objective Last 24 Hour Vital Signs Date Time Temp Pulse Resp B/P (MAP) Pulse Ox O2 Delivery O2 Flow Rate FiO2 03/24/17 12:00 98.5 81 20 106/60 95 03/24/17 06:23 98.2 03/24/17 04:00 100.3 80 21 126/81 98 03/24/17 04:00 Room Air 03/24/17 00:00 99.1 96 20 124/73 96 03/24/17 00:00 Room Air 03/23/17 23:00 99.3 03/23/17 22:49 Simple Mask 6.0 03/23/17 22:48 93 Simple Mask 6.0 03/23/17 21:59 98.6 03/23/17 20:00 102.3 103 20 124/73 95 03/23/17 20:00 Room Air 03/23/17 17:36 98.6 Extremities: calf tenderness Intake and Output 03/23/17 03/24/17 19:00 07:00 Intake Total 840 ml 360 ml Balance 840 ml 360 ml Intake Oral 840 ml 360 ml # Voids 4 2 # Bowel Movements 1 Laboratory Tests Test 03/24/17 06:25 Thyroid Stimulating Hormone (TSH) 1.997 uiU/mL (0.358-3.740) Free Thyroxine 1.02 NG/DL (0.76-1.46) Microbiology Date/Time Source Procedure Growth Status 03/22/17 16:25 Blood Blood Culture - Preliminary NO GROWTH AFTER 24 HOURS Resulted 03/22/17 16:20 Blood Blood Culture - Preliminary NO GROWTH AFTER 24 HOURS Resulted Objective HEAD AND NECK: Shows no JVD. LUNGS: Clear. CARDIOVASCULAR: Regular S1 and S2 with no gallop or murmur. ABDOMEN: Soft. EXTREMITIES: Erythema in the middle aspect of the thigh better LUCIA MEDINA Mar 24, 2017 14:02
--- NOTE | 2017-03-27 07:46 | Discharge Summary ---
Discharge Summary Hospital Course Date of Admission Mar 22, 2017 at 18:25 Date of Discharge Mar 24, 2017 at 14:00 Admitting Diagnosis cellulitis RAMY Jaeger is a 57 year old female who was admitted on Mar 22, 2017 at 18: 25 for Cellulitis Hospital Course dc summary #[id number] Discharge Medications Continued Medications: Metformin Hcl* (Metformin Hcl*) 500 Mg Tablet 500 MG ORAL DAILY, TAB Simvastatin (Zocor) 20 Mg Tablet 20 MG ORAL BEDTIME, TAB Discharge Condition Upon Discharge: stable Discharge Disposition Patient was discharged to Home (01) Discharge Diagnoses: Discharge Instructions Discharge Instructions Special Instructions I have been assigned to complete a D/C Summary on this account. I was not involved in the patient management Jaki Duran NP (Vanchtein) Mar 27, 2017 07:46
--- NOTE | 2017-03-28 01:45 | Discharge Summary ---
DATE OF ADMISSION: 03/22/2017 DATE OF DISCHARGE: 03/24/2017 REASON FOR ADMISSION: 57-year-old female with a history of diabetes, hypertension, and hyperlipidemia, presented to emergency room complaining of right lower extremity redness and swelling. The patient was diagnosed with cellulitis right thigh and was admitted for further management. HOSPITAL COURSE: The patient was admitted. Infectious Disease and Cardiology consults were consulted. The patient was started on empiric antibiotics. Blood cultures were negative. Blood pressure was managed with RENAE inhibitor and was stable. Blood sugar was managed with metformin. Statin was continued. Wound care nurse seen the patient and recommendation regarding right leg cellulitis were implemented as per wound nurse recommendation. The patient was clinically improving. Potassium was replaced. DVT prophylaxis provided. Pain management provided as needed. Bowel regimen instituted. The patient was stable for discharge home. FINAL DIAGNOSES: 1. Cellulitis, right thigh. 2. Hypertension. 3. Diabetes. 4. Hyperlipidemia. DISCHARGE MEDICATIONS: See medication reconciliation list. DISCHARGE INSTRUCTIONS: The patient was discharged home. FOLLOWUP: Follow up with the primary medical doctor next week. Varun Coley M.D. I have been assigned to dictate discharge summary on this account and I was not involved in the patient's management. Jaki joellibby N.PBritany DR: Ganesh JOB#: [id number] CC: ARBNE
== END 2017-03-24 14:00 | disposition home or self-care (01) | DRG 720 ==
LOC: EMR 16:12 → 4E 18:25 → EDBEDREQ 18:43
DX: A41.9 Sepsis, unspecified organism (principal); E11.8 Type 2 diabetes mellitus with unspecified complications; L03.818 Cellulitis of other sites; E78.5 Hyperlipidemia, unspecified; I10 Essential (primary) hypertension; Z79.84 Long term (current) use of oral hypoglycemic drugs
CPT/HCPCS: 36415; 80048; 80053; 82962; 84439; 84443; 85025; 85610; 85730; 87040; 94760; 99285; J1815

== ENCOUNTER 2019-12-11 20:39 | Emergency (ER) | payer MEDICAID ==
[~2019-12-11] VITALS: Ht 154.9 cm; Wt 61.2 kg
[~2019-12-11 20:39] MED LIST: ACETAMINOPHEN-1 EAC1 ORAL; CYCLOBENZAPRINE10 MG ORAL; IBUPROFEN800 MG ORAL; METFORMIN HCL500 M1 ORAL; NKM; ZOCOR20 M1 ORAL
[2019-12-11 21:50] VITALS: BP 147/90
[2019-12-11] MEDS ORDERED: Bactrim-DS 1 tab ORAL ONE (22:15)
[2019-12-11] MEDS ORDERED: BACTRIM DS TAB1 EAC1 ORAL (22:19)
[2019-12-11] MEDS ORDERED: IBUPROFEN600 M1 ORAL (22:19)
--- NOTE | 2019-12-11 22:19 | Emergency Room Report ---
History of Present Illness General Chief Complaint: Skin Rash/Abscess Source: Patient, Medical Record Present Illness HPI The 9-year-old female with a history of high blood pressure and diabetes. She presents with chief plan abscess to her buttock. She said is been there for 3 weeks but got more swollen and red about a week ago. No drainage. Pain is localized to the left buttock. Pain is 8 out of 10. Worse with sitting. Worse with palpation. Better with rest. No drainage. No fever or chills. Allergies: Coded Allergies: No Known Allergies (Unverified , 03/22/17) COVID-19 Screening Contact w/high risk pt: No Experienced COVID-19 symptoms?: No COVID-19 Testing performed SCHOOL ADMINISTRATOR: No Patient History Past Medical History: see triage record, old chart reviewed, DM, HTN Past Surgical History: other Pertinent Family History: none Social History: Denies: smoking Now: No Immunizations: other Reviewed Nursing Documentation: PMH: Agreed; PSxH: Agreed Nursing Documentation-PMH Hx Hypertension: Yes - high cholesterol Hx Diabetes: Yes Hx Cancer: No Hx Gastrointestinal Problems: No Hx Neurological Problems: No Review of Systems Eye: Denies: eye pain, blurred vision ENT: Denies: ear pain, nose congestion, throat swelling Respiratory: Denies: cough, shortness of breath Cardiovascular: Denies: chest pain, palpitations Gastrointestinal: Denies: abdominal pain, diarrhea, nausea, vomiting Musculoskeletal: Denies: back pain, joint pain Skin: Denies: rash Neurological: Denies: headache, numbness Endocrine: Denies: increased thirst, increased urine Hematologic/Lymphatic: Denies: easy bruising All Other Systems: negative except mentioned in HPI Physical Exam Vital Signs Date Time Temp Pulse Resp B/P (MAP) Pulse Ox O2 Delivery O2 Flow Rate FiO2 12/11/19 20:42 88 16 147/90 (109) 98 Room Air 12/11/19 21:50 97.8 Vitals with high blood pressure Sp02 EP Interpretation: reviewed, normal General Appearance: well appearing, no apparent distress, alert Head: normocephalic, atraumatic Eyes: bilateral eye PERRL, bilateral eye EOMI ENT: hearing grossly normal, normal pharynx Neck: full range of motion, supple, no meningismus Respiratory: chest non-tender, lungs clear, normal breath sounds Cardiovascular #1: regular rate, rhythm, no murmur Gastrointestinal: normal bowel sounds, non tender, no mass, no organomegaly, no bruit, non-distended Rectal: other - Left buttock near gluteal fold medially, there is an indurated area of 4 cm with erythema. No crepitance. No fluctuant. Tender to palpation. Musculoskeletal: back normal, normal range of motion, gait/station normal Psychiatric: mood/affect normal Procedures Incision and Drainage Incision and Drainage : Consent: Verbal Site: Left buttock Blade Size: 11 I & D Procedure: betadine prep, sterile drapes applied, sterile dressing applied, gauze wick placed Wound Location: other - Left buttock Anesthesia: 1% Lidocaine Volume Anesthetic (ccs): 6 Patient Tolerated: Well Complications: None Progress Area cleaned with Betadine. Local anesthetic with 1% lidocaine without epinephrine. I made a 2 cm incision. Small amount of pus expressed. Loculated area broken up. More pus expressed. Wound irrigated and packed. Patient taught a procedure without any problem. Medical Decision Making Diagnostic Impression: Primary Impression: Abscess of buttock, left ER Course Patient with a super abscess of the buttock. Most likely MRSA. No deep infection. No necrotizing fasciitis. Will discharge home. Last Vital Signs Date Time Temp Pulse Resp B/P (MAP) Pulse Ox O2 Delivery O2 Flow Rate FiO2 12/11/19 21:50 97.8 84 16 147/90 98 Room Air Status: improved Disposition: HOME, SELF-CARE Condition: Stable Scripts Ibuprofen* (MOTRIN*) 600 Mg Tablet 600 MG ORAL Q6H PRN for For Pain, #30 TAB 0 Refills Prov: Awais Anand MD 12/11/19 Trimethoprim/Sulfamethoxazole 160/800* (BACTRIM DS TABLET*) 1 Each Tablet 1 TAB ORAL Q12H, #14 TAB 0 Refills Prov: Awais Anand MD 12/11/19 Referrals: JONO TURCIOS,REFERRING (PCP) Patient Instructions: Abscess Additional Instructions: Follow-up with your doctor in 2 days return here for recheck on your abscess and packing removal. Return sooner if symptoms worsen. Awais Anand MD Dec 11, 2019 22:19
[2019-12-11 22:24] VITALS: BP 147/90
== END 2019-12-11 22:25 | disposition home or self-care (01) ==
LOC: EMR 22:14
DX: L02.31 Cutaneous abscess of buttock (principal); E78.00 Pure hypercholesterolemia, unspecified; E11.9 Type 2 diabetes mellitus without complications
CPT/HCPCS: 10060; Z7502; 99282

== ENCOUNTER 2019-12-14 19:39 | Emergency (ER) | payer MEDICAID ==
[~2019-12-14] VITALS: Ht 154.9 cm; Wt 61.2 kg
[~2019-12-14 19:39] MED LIST changes: +BACTRIM DS TAB1 EAC1 ORAL; +IBUPROFEN600 M1 ORAL
[2019-12-14 19:55] VITALS: BP 129/77
--- NOTE | 2019-12-14 20:14 | Emergency Room Report ---
History of Present Illness General Chief Complaint: Wound Recheck/Suture Removal Present Illness HPI 59-year-old female with no known segment past medical history here requesting wound check. Patient had abscess drained from left buttocks 2 days ago at [facility] and reports that the packing fell off and is requesting another packing. Denies any fever and chills. Continues to take antibiotic. The wound appears to be healing very well without any pus drainage. Up-to-date with tetanus shot. Denies any new injury. Allergies: Coded Allergies: No Known Allergies (Unverified , 03/22/17) COVID-19 Screening Contact w/high risk pt: No Experienced COVID-19 symptoms?: No COVID-19 Testing performed HAULING CONTRACTOR: No Patient History Past Medical History: see triage record Past Surgical History: none Pertinent Family History: none Now: No Immunizations: UTD Reviewed Nursing Documentation: PMH: Agreed; PSxH: Agreed Nursing Documentation-PMH Hx Hypertension: Yes - high cholesterol Hx Diabetes: Yes Hx Cancer: No Hx Gastrointestinal Problems: No Hx Neurological Problems: No Review of Systems All Other Systems: negative except mentioned in HPI Physical Exam Vital Signs Date Time Temp Pulse Resp B/P (MAP) Pulse Ox O2 Delivery O2 Flow Rate FiO2 12/14/19 19:44 98.4 87 16 129/77 (94) 99 Room Air Sp02 EP Interpretation: reviewed, normal General Appearance: well appearing, no apparent distress Head: normocephalic, atraumatic ENT: hearing grossly normal, normal voice Neck: full range of motion, supple Respiratory: no respiratory distress, speaking full sentences Cardiovascular #1: no edema, no murmur, normal capillary refill Gastrointestinal: non tender, soft Rectal: deferred Genitourinary: no CVA tenderness Musculoskeletal: gait/station normal Neurologic: alert, oriented, normal gait Psychiatric: mood/affect normal Skin: other - drained abscess left buttock healing Lymphatic: no adenopathy Procedures Additional Procedure Procedure Narrative packing strip applied left buttock Medical Decision Making PA Attestation All my diagnosis and treatment plans were reviewed ad discussed with my supervising physician Dr. Rose Diagnostic Impression: Primary Impression: Encounter for wound re-check ER Course 59-year-old female with no known segment past medical history here requesting wound check. Patient had abscess drained from left buttocks 2 days ago at [facility] and reports that the packing fell off and is requesting another packing. Denies any fever and chills. Continues to take antibiotic. The wound appears to be healing very well without any pus drainage. Up-to-date with tetanus shot. Denies any new injury. Ddx considered but are not limited to : Cellulitis, superficial infection, abscess Vital signs: are WNL, pt. is afebrile H&PE are most consistent with: Wound check ORDERS: None ED INTERVENTIONS: Packing strip applied without any complication, new dressing was applied DISCHARGE: At this time pt. is stable for d/c to home. Will provide printed patient care instructions, and any necessary prescriptions. Care plan and follow up instructions have been discussed with the patient prior to discharge. Wound check in 2 to 4 days, continue taking antibiotics. Last Vital Signs Date Time Temp Pulse Resp B/P (MAP) Pulse Ox O2 Delivery O2 Flow Rate FiO2 12/14/19 19:55 98.4 87 16 129/77 99 Room Air Disposition: HOME, SELF-CARE Condition: Stable Patient Instructions: Wound Check Mathieu Herbert Dec 14, 2019 20:14
[2019-12-14 20:15] VITALS: BP 125/75
== END 2019-12-14 20:30 | disposition home or self-care (01) ==
LOC: EMR 20:22
DX: L02.31 Cutaneous abscess of buttock (principal); E11.9 Type 2 diabetes mellitus without complications; E78.00 Pure hypercholesterolemia, unspecified
CPT/HCPCS: 99281